=== PATIENT | male | born 1945 | race Caucasian/White ===

== ENCOUNTER 2017-09-03 14:17 | Outpatient (CLI) | payer OTHER ==
--- NOTE | 2017-09-03 15:27 | PDGENHP ---
History & Physical Chief Complaint: LUNG CA. NEEDS BRAIN IMAGING History of Present Illness: INCREASING WEAKNESS. R/O METS Pertinent Past, Social, Family History: SUPPORTIVE DAUGHTER WITH PATIENT. NON SMALL CELL LUNG CA. 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 Relevant Physical Exam: SPEECH DELAY AND STUTTER. ALERT AND ORIENTED OTHERWISE. ANXIOUS ABOUT MRI. Cardiorespiratory Assessment: RRR, CTA
--- NOTE | 2017-09-03 15:28 | PDPROPOC ---
Sedation Plan of Care Sedation Plan of Care: vital signs stable, mental status noted, patient educated of risks, benefits, alternatives, patient can tolerate sedation ASA Classification: ASA 3 Planned drugs: fentanyl, midazolam Mallampati Score: Class 2 Mallampati Reference Image: Patient passed 3-3-2 rule?: Yes
[2017-09-03] MEDS ORDERED: METOPROLOL TARTRATE 5 MG/5 ML INJ ONE (15:30)
[2017-09-03] MEDS ORDERED: hydrALAZINE 20 MG/ML VIAL ONE (15:30)
[2017-09-03] MEDS ORDERED: MIDAZOLAM 2 MG/2 ML VIAL ONE (15:31)
[2017-09-03] MEDS ORDERED: fentaNYL 100 MCG/2 ML INJ ONE (15:31)
[2017-09-03] MEDS ORDERED: NALOXONE HCL 0.4 MG/ML INJ ONE (15:31)
[2017-09-03] MEDS ORDERED: FLUMAZENIL 0.5 MG/5 ML MDV IVP ONE (15:31)
[2017-09-03] MEDS ORDERED: NALOXONE HCL 0.4 MG/ML INJ IVP PRN (16:10)
[2017-09-03] MEDS ORDERED: fentaNYL 100 MCG/2 ML INJ IVP PRN (16:10)
[2017-09-03] MEDS ORDERED: MIDAZOLAM 2 MG/2 ML VIAL IVP PRN (16:10)
[2017-09-03] MEDS ORDERED: FLUMAZENIL 0.5 MG/5 ML MDV IVP PRN (16:10)
[2017-09-03] MEDS ORDERED: MEPERIDINE 25 MG/ML SYR IVP PRN (16:10)
[2017-09-03] MEDS ORDERED: NS 1,000 ML IV SCH (16:15)
[2017-09-03] MEDS ORDERED: GADOBUTROL 10 ML VIAL IVP ONE (16:40)
[2017-09-03] MEDS ORDERED: METOPROLOL TARTRATE 5 MG/5 ML INJ IVP ONE (18:00)
[2017-09-03] MEDS ORDERED: hydrALAZINE 20 MG/ML VIAL IVP ONE (18:00)
[2017-09-03 19:15] VITALS: BP 186/114
== END 2017-09-03 19:01 ==
LOC: FIMAGING 14:17
PROC: B030Y0Z Magnetic Resonance Imaging (MRI) of Brain using Other Contrast, Unenhanced and Enhanced (ICD-10-PCS; principal; 2017-09-03 17:25)
DX: C34.90 Malignant neoplasm of unspecified part of unspecified bronchus or lung (principal); R53.1 Weakness; I69.928 Other speech and language deficits following unspecified cerebrovascular disease; R94.02 Abnormal brain scan
CPT/HCPCS: 70200; 70553; A9585; J0360; J2250; J3010; 82565-PO; J2310